=== PATIENT | male | born 1925 | race Caucasian/White ===

== ENCOUNTER → 2016-12-07 | Outpatient (CLI) | payer BC ==
[~2016-12-07] MED LIST: ACET-1138 PO; ALPR0.25 PO; ASPCH81X PO; ATOR-14 PO; CHOLPOW PO; CHOLTAB3 PO; CLB200 PO; FLUCINONIDE TOP; FOLI-29 PO; LISI-729 PO; LOSA1TAB PO; LZL/125 PO; MELA1TAB5 PO; NTRGSL/4 UT; ONDA8TAB6 PO; PSYLPOW38 PO; SNK PO; ULT50X PO
[2016-12-07 10:12] LABS: BASO % 0.7 %; BASO ABS # 0.04 K/uL (0-0.2); COMPLETE YES; EOS % 2.7 %; HEMATOCRIT 39.9 % (42-52); IG% 0.2 %; LYMPH % 25.8 %; LYMPH ABS # 1.52 K/uL (1.2-3.4); MEAN CELL VOLUME 90.7 fL (80-100); MEAN CORPUSCULAR HEMOGLOBIN 31.6 pg (25-34); MEAN CORPUSCULAR HGB CONC 34.8 g/dl (32-36); MEAN PLATELET VOLUME 10.5 fL (7.4-10.4); MONO % 11.5 %; NEUT % 59.1 %; PLATELET COUNT 211 K/uL (130-400); WHITE BLOOD COUNT 5.89 K/uL (4.8-10.8)
[2016-12-07 10:14] LABS: ESTIMATED AVERAGE GLUCOSE 120 mg/dl; HA1C FLAG Normal (Normal)
[2016-12-07 10:34] LABS: ALT/SGPT 21 U/L (12-78); BLOOD UREA NITROGEN 16 mg/dl (7-18); BUN/CREATININE RATIO 18.5 (10-20); CARBON DIOXIDE 29 mmol/L (21-32); CHLORIDE 95 mmol/L (98-107); CHOLESTEROL 154 mg/dl (0-200); CREATININE 0.86 mg/dl (0.60-1.40); GLUCOSE 98 mg/dl (70-99); SODIUM 133 mmol/L (136-145); TRIGLYCERIDES 76 mg/dl (0-150); VERY LOW DENSITY LIPOPROT CALC 15 mg/dl
[2016-12-07 10:47] LABS: AST/SGOT 23 U/L (15-37); CHOLESTEROL/HDL RATIO 2.3; HDL CHOLESTEROL 68 mg/dl; LDL CHOLESTEROL CALCULATED 71 mg/dl
--- NOTE | 2017-01-05 07:09 | CODING QUERY MEDICAL NECESSITY ---
CQSUPPORTING DIAGNOSIS NEEDED A supporting diagnosis is required for the test/procedure performed on this patient in order for us to be reimbursed by the patient's insurance. Please provide a supporting diagnosis for the following test/procedure listed below next to the test name along with your signature. *If there is no additional diagnosis for this patient that would support the following test/procedure please document that below next to the test/procedure. Test(s)/Procedure(s) that require a supporting diagnosis: DOS 12/07/16 GLYCATED HEMOGLOBIN Provider Signature: Date: Thank you Belinda Rios [employer] Once completed, please kindly fax back to [phone] For questions please call [phone]
== END | disposition home or self-care (01) ==
LOC: C.LABVPSUW 09:36
PROVIDERS: ATTEND Internal Medicine
DX: E78.00 Pure hypercholesterolemia, unspecified (principal); R73.9 Hyperglycemia, unspecified

== ENCOUNTER 2017-01-04 06:00 | Inpatient (IN) | payer BC, OTHER ==
[2016-12-10 13:42] VITALS: BMI 22.0
--- NOTE | 2016-12-10 14:31 | PAT Medication Instructions ---
Service Date Dec 10, 2016. Current Home Medication List Alprazolam (Xanax), 0.25 MG PO HS Aspirin (Aspirin Chewable), 81 MG PO QAM Atorvastatin (Lipitor), 10 MG PO QPM Folic Acid-Vit B2-Vit B6-Vit B (Folgard), 800 MG PO QPM Indapamide (Lozol), 1.25 MG PO QAM Lisinopril (Zestril), 2.5 MG PO QPM Melatonin (Kp Melatonin), 0.5 TAB PO HS Nitroglycerin (Nitrostat), 0.4 MG UT PRN Psyllium Husk (Bulk) (Psyllium Husk), 1 DOSE PO QAM [flucinonide], 1 DOSE TOP DAILY PRN for left calf Medication Instructions For Your Scheduled Surgery Nitroglycerin (Nitrostat), 0.4 MG UT PRN (if needed) - Hold the following medications evening prior to surgery: Lisinopril (Zestril), 2.5 MG PO QPM - Hold the following medications 24 hours prior to surgery: Flucinonide 1 DOSE TOP DAILY PRN for left calf - Hold the following medications the morning of surgery: Psyllium Husk (Bulk) (Psyllium Husk), 1 DOSE PO QAM Indapamide (Lozol), 1.25 MG PO QAM - Take the following medications the morning of surgery with a sip of water: Aspirin (Aspirin Chewable), 81 MG PO QAM - Take the following medications as scheduled the night before surgery: Melatonin (Kp Melatonin), 0.5 TAB PO HS Folic Acid-Vit B2-Vit B6-Vit B (Folgard), 800 MG PO QPM Atorvastatin (Lipitor), 10 MG PO QPM Alprazolam (Xanax), 0.25 MG PO HS If you have any questions please call us at [phone] or [phone] ( [place]) or [phone]
--- NOTE | 2016-12-10 15:09 | DIAGNOSTIC IMAGING REPORT ---
CHEST 2 VIEWS ROUTINE CLINICAL HISTORY: Upper chest pain status post trauma COMPARISON STUDY: 12/18/2015 FINDINGS: The cardiac and mediastinal contours are normal. There is no evidence of focal pulmonary consolidation. There is no evidence of failure. No pleural effusions are visualized.[ There is mild basilar interstitial thickening which is felt to be chronic. No pneumothorax is visualized. IMPRESSION: No active disease in the chest. Electronically signed by: Floyd Yanez M.D. 12/10/2016 3:07 PM Dictated Date/Time: 12/10/2016 3:01 PM
[2016-12-10 15:46] LABS: URINE APPEARANCE CLEAR (CLEAR); URINE BILIRUBIN NEG (NEG); URINE COLOR YELLOW; URINE NITRITE NEG (NEG); URINE SPECIFIC GRAVITY 1.018 (1.000-1.030); UROBILINOGEN NEG (NEG); ZZUR CULT IF INDIC CLEAN CATCH NO
[2016-12-10 15:48] LABS: MANUAL MICROSCOPIC REQUIRED? NO; REVIEW REQ? NO
[2016-12-10 15:54] LABS: PARTIAL THROMBOPLASTIN RATIO 1.3; PROTHROMBIN TIME (PATIENT) 10.8 SECONDS (9.0-12.0)
[2016-12-10 16:11] LABS: BUN/CREATININE RATIO 24.2 (10-20); CALCIUM 8.9 mg/dl (8.5-10.1); CREATININE 0.9 mg/dl (0.60-1.40); POTASSIUM 3.5 mmol/L (3.5-5.1)
--- NOTE | 2016-12-25 13:44 | HISTORY & PHYSICAL EXAMINATION ---
DATE OF ADMISSION: 01/04/2017 CHIEF COMPLAINT: Right hip pain. HISTORY OF PRESENT ILLNESS: Kayla is an 89-year-old male with a multiple year history of pain in his right hip. The patient rates his pain a 9/10. He has pain with his daily activities. He has limited standing and walking tolerance. Pain is worse with weightbearing. The patient has failed conservative treatment and is scheduled for right hip replacement. PAST MEDICAL HISTORY: Hypertension, history of heart disease, history of DVT. He denies history of diabetes. PAST SURGICAL HISTORY: Bilateral knee replacement, left hip replacement and poly exchange 2000. SOCIAL HISTORY: The patient drinks 5 drinks per week. He denies tobacco use. He lives in a single story home at the [facility]. He is and retired. FAMILY HISTORY: Negative for DVT. MEDICATIONS: 1.25 mg, statin drug 10 mg, cholestyramine 4 grams in a.m., Folgard 1 tablet daily, aspirin 81 mg daily, alprazolam 0.25 mg, melatonin, [place] 5/325, Nitrostat 0.4 mg, flecainide 0.05%, Lisinopril 2.5 mg daily. ALLERGIES: None. REVIEW OF SYSTEMS: See HPI. Ten other systems reviewed, all negative. PHYSICAL EXAMINATION: VITAL SIGNS: Height 5 foot 9, weight 159 pounds. GENERAL: This is a well-developed, well-nourished male who is alert and oriented x3. Mood and affect are appropriate. HEAD, EYES, EARS, NOSE, AND THROAT: Normocephalic, atraumatic. Mucous membranes are moist and intact. NECK: Supple without lymphadenopathy. HEART: Regular rate and rhythm without murmurs, rubs or gallops. LUNGS: Clear to auscultation without wheezes or rhonchi. ABDOMEN: Soft and nontender. Bowel sounds are equal and active. EXTREMITIES: No ecchymosis, redness or warmth. Thigh and calf are soft and nontender. Log roll of the hip reproduces pain in the groin. He is neurovascularly intact. He walks with an antalgic gait. X-RAY EXAMINATION: AP and lateral views shows severe joint space narrowing and osteophyte formation. IMPRESSION: Degenerative joint disease, right hip. PLAN: The patient will be admitted for a right total hip arthroplasty. We will plan on aspirin for DVT prophylaxis. PCP is Dr. Cohn. [facility] [place] [facility] [place] [facility] [place] [facility]. ADI
[2017-01-04] VITALS (13 sets, daily range): BP systolic 105–176; BP diastolic 55–79; PULSE 65–86; TEMP 36.2–36.8; O2SAT 97–100; Ht 175.3 cm; Wt 71.4 kg
[~2017-01-04] VITALS: Ht 175.3 cm; Wt 71.4 kg
[~2017-01-04 06:00] MED LIST changes: -ACET-1138 PO; +ACETAMINOPHEN 500 MG TAB PO SCH; +CEFAZOLIN 2000 MG/60 ML D5W 60 ML IV SCH; -CHOLPOW PO; -CHOLTAB3 PO; -CLB200 PO; +CeleBREX 200 MG CAP PO SCH; +DEXAMETHASONE 4 MG TAB PO SCH; +FAMOTIDINE 20 MG TAB PO SCH; +GABAPENTIN 300 MG CAP PO SCH; +LACTATED RINGER'S 1000ML 1,000 ML IV SCH; +LACTATED RINGER'S 1000ML IV SCH; -LOSA1TAB PO; +METOCLOPRAMIDE HCL 10 MG TAB PO SCH; -ONDA8TAB6 PO; +POLYMYXIN B SULFATE 100,000 UNITS in NSS 100ML IR SCH; +ROPIVACAINE 5MG/ML 30 ML 150 MG, BUPIVACAINE/EPINEPHR 0.5% MPF 30 ML, KETOROLAC TROMETH... INFIL SCH; -SNK PO; +TRAMADOL HCL 50 MG TAB PO SCH; -ULT50X PO; +VANCOMYCIN INJ 400 MG in NSS 100ML IR SCH
[2017-01-04] MEDS: TRANEXAMIC ACID INJ 1,000 MG in SODIUM CHLORIDE 0.9% 100ML 100 ML IV SCH ×2 (06:30→07:47)
--- NOTE | 2017-01-04 06:38 | History & Physical Bridge Note ---
H&P Re-Evaluation Bridge Note: I have examined the patient, reviewed the History & Physical and in the interval since the performance of the History & Physical I have noted the following changes of clinical significance: No changes noted
[2017-01-04] MEDS ORDERED: MIDAZOLAM HCL 1 MG/ML 2ML VIAL ONE (06:48)
[2017-01-04] MEDS ORDERED: ONDANSETRON INJ 2 MG/ML 2 ML VIAL ONE (06:48)
[2017-01-04] MEDS ORDERED: PROPOFOL IV EMULSION 10 MG/ML 20 ML VIAL IV ONE (06:48)
[2017-01-04] MEDS ORDERED: FENTANYL CITRATE INJ 50 MCG/1 ML 2 ML VIAL ONE (06:49)
[2017-01-04] MEDS ORDERED: BACITRACIN 50000 UNIT VIAL ONE (06:52)
[2017-01-04] MEDS ORDERED: ORTHO JOINT ANESTHETIC ONE (06:52)
[2017-01-04] MEDS ORDERED: POVIDONE-IODINE OP SOLN 30 ML BTL ONE (06:52)
[2017-01-04] MEDS ORDERED: BUPIVACAINE 0.5 % 5 MG/1 ML PF 10ML VIAL ONE (06:56)
[2017-01-04] MEDS ORDERED: INDAPAMIDE 1.25 MG TAB PO SCH (07:00)
[2017-01-04 07:37] LABS: PARTIAL THROMBOPLASTIN RATIO 1.3
[2017-01-04] MEDS ORDERED: ONDANSETRON INJ 2 MG/ML 2 ML VIAL IV PRN ×2 (07:45→09:30)
[2017-01-04] MEDS ORDERED: EpHEDrine SULFATE INJ 50 MG/ML AMP IV PRN (07:45)
[2017-01-04] MEDS ORDERED: FENTANYL CITRATE INJ 50 MCG/1 ML 2 ML VIAL IV PRN (07:45)
[2017-01-04] MEDS ORDERED: ATROPINE SULFATE 0.1 MG/ML 5ML SYR IV PRN (07:45)
[2017-01-04] MEDS ORDERED: HydrALAZINE HCL 20 MG/ML VIAL ONE (08:22)
[2017-01-04] MEDS ORDERED: EpHEDrine SULFATE 50MG/5ML SYR ONE (08:47)
[2017-01-04] MEDS ORDERED: WATER, STERILE FOR INJ 10 ML VIAL ONE (08:47)
[2017-01-04] MEDS ORDERED: PHENYLEPHRINE 100MCG/ML 5ML SYR ONE (09:13)
--- NOTE | 2017-01-04 09:29 | [facility] Post Operative Brief Note ---
Immediate Operative Summary Operative Date Jan 04, 2017. Pre-Operative Diagnosis DEGENERATIVE JOINT DISEASE RIGHT HIP Post-Operative Diagnosis SAME PREOP Procedure(s) Performed TOTAL RIGHT HIP ARTHROPLASTY, ANTERIOR APPROACH Surgeon DR. Christa MESSINA Chinese Herbalist Surgeon(s) Lois FONSECA PAC Estimated Blood Loss 75mL Findings DJD Specimens RIGHT HIP BONE AND TISSUE Complication(s) None Disposition Recovery Room / PACU
[2017-01-04] MEDS ORDERED: METOCLOPRAMIDE HCL INJ 5 MG/ML 2 ML VIAL IV PRN (09:30)
[2017-01-04] MEDS ORDERED: SOD PHOSPHATE/SOD BIPHOSPHATE ENEMA 132 ML BTL PR PRN (09:30)
[2017-01-04] MEDS ORDERED: NITROGLYCERIN 0.4 MG SL PER TAB CHARGE UT SCH (09:30)
[2017-01-04] MEDS ORDERED: MAGNESIUM HYDROXIDE SUSP 30 ML UDC PO PRN (09:30)
[2017-01-04] MEDS ORDERED: ALUMINUM/MAGNESIUM/SIMETH (MAALOX MAX) 30 ML UDC PO PRN (09:30)
[2017-01-04] MEDS ORDERED: DiphenhydrAMINE HCL 50 MG/ML VIAL IV PRN (09:30)
[2017-01-04] MEDS ORDERED: BISACODYL 10 MG SUPP PR PRN (09:30)
[2017-01-04] MEDS ORDERED: ZOLPIDEM TARTRATE 5 MG TAB PO PRN (09:30)
[2017-01-04] MEDS ORDERED: FLUOCINONIDE 0.05% CR 15 GM TUBE EXT PRN (09:30)
[2017-01-04] MEDS ORDERED: TRAMADOL HCL 50 MG TAB PO PRN (09:30)
--- NOTE | 2017-01-04 10:00 | DIAGNOSTIC IMAGING REPORT ---
RIGHT HIP UNILATERAL 1 VIEW CLINICAL HISTORY: RIGHT ANTERIOR HIP Right pain COMPARISON: None. DISCUSSION: Total right hip replacement. Good alignment expected soft tissue change. IMPRESSION: Total right hip replacement Electronically signed by: Warner Viveros M.D. 01/04/2017 9:58 AM Dictated Date/Time: 01/04/2017 9:58 AM
--- NOTE | 2017-01-04 10:18 | Anesthesiology Progress Note ---
Anesthesia Post Op Note Date & Time Jan 04, 2017 at 10:18 Vital Signs Pain Intensity: 0 Vital Signs Past 12 Hours Date Time Temp Pulse Resp B/P Pulse Ox O2 Delivery O2 Flow Rate FiO2 01/04/17 10:10 127/63 01/04/17 10:09 71 19 100 01/04/17 10:09 72 19 01/04/17 10:05 137/64 01/04/17 10:04 70 16 100 01/04/17 10:04 66 16 01/04/17 10:00 137/68 01/04/17 09:59 74 21 100 01/04/17 09:59 74 21 01/04/17 09:55 131/58 01/04/17 09:54 76 20 99 01/04/17 09:54 76 20 01/04/17 09:54 36.0 78 16 133/59 99 Mask 10 01/04/17 06:36 36.5 68 18 176/79 98 Room Air Notes Mental Status: alert / awake / arousable, participated in evaluation Pt Amnestic to Procedure: Yes Nausea / Vomiting: adequately controlled Pain: adequately controlled Airway Patency, RR, SpO2: stable & adequate BP & HR: stable & adequate Hydration State: stable & adequate Neuraxial Anesthesia: was administered, sensory block is resolving Anesthetic Complications: no major complications apparent
--- NOTE | 2017-01-04 10:28 | DIAGNOSTIC IMAGING REPORT ---
AP PELVIS, CROSSTABLE LATERAL RIGHT HIP History: Right total hip arthroplasty. Degenerative arthritis. Postop. FINDINGS: The patient is status post a right total hip arthroplasty. The hardware is intact. No fracture or dislocation. Skin herman and surgical drains are in place. There is also an old left total hip arthroplasty. IMPRESSION: Right total hip arthroplasty. No evidence for hardware complication Electronically signed by: Neal Saravia M.D. 01/04/2017 10:27 AM Dictated Date/Time: 01/04/2017 10:26 AM
[2017-01-04] MEDS: KETOROLAC TROMETHAMINE 15 MG/ML VIAL IV. SCH ×3 (11:54→23:24)
[2017-01-04] MEDS: D5W AND 1/2NSS + 20MEQ KCL 1,000 ML IV SCH ×2 (11:55→20:46)
[2017-01-04] MEDS: CEFAZOLIN IV 1,000 MG in DEXTROSE 5% 50ML 50 ML IV SCH ×2 (13:23→21:49)
[2017-01-04] MEDS: ACETAMINOPHEN 500 MG TAB PO SCH ×2 (13:24→21:50)
[2017-01-04] MEDS: [UNRECOGNIZED DRUG - OTHER] PO SCH (15:39)
[2017-01-04] MEDS: ASPIRIN 81 MG ECTAB PO SCH (20:45)
[2017-01-04] MEDS ORDERED: LISINOPRIL 2.5 MG TAB PO SCH (21:00)
[2017-01-04] MEDS ORDERED: SENNA 8.6 MG TAB PO SCH (21:00)
[2017-01-04] MEDS ORDERED: ATORVASTATIN 10 MG TAB PO SCH (21:00)
[2017-01-04] MEDS ORDERED: ALPRAZOLAM 0.25 MG TAB PO SCH (22:00)
--- NOTE | 2017-01-05 00:14 | OPERATIVE REPORT ---
DATE OF OPERATION: 01/04/2017 PREOPERATIVE DIAGNOSIS: Degenerative arthritis, right hip. POSTOPERATIVE DIAGNOSIS: Same. PROCEDURE: Right total hip replacement. SURGEON: Dr. Pacheco. COMMERCIAL SINGER: NANDO Aggarwal ANESTHESIA: Spinal. BLOOD LOSS: 75 mL REPLACEMENT FLUIDS: 1500 mL crystalloid. DRAINS: Hemovac x1. CULTURES: None. COMPLICATIONS: None. COMPONENTS USED: [employer] hip system: Acetabulum size 52, femur size 7 high offset, femoral head +4, 36 mm Oxinium. NOTE: NANDO Aggarwal, was present and assisted throughout due to the complicated nature of this case. She helped with preparation and set up. She first assisted throughout and personally closed the capsule, subcutaneous and skin layers, and applied the postop dressing. DESCRIPTION: Following satisfactory spinal, the patient was supine. The right leg was placed in the traction device and the left leg in the well-leg seth. The right leg was prepared with ChloraPrep and draped sterilely. Following a surgical timeout, an anterior approach in the interval between the sartorius and tensor muscles was completed. Circumflex femoral vessels were identified and ligated. An anterior capsulotomy was performed exposing the arthritic femoral neck and head. Femoral neck and head were trimmed and removed. The acetabular self-retraining retractor was placed. Acetabular preparation and reaming was completed, and under fluoroscopic guidance, a 52 shell was impacted into an anatomic position and secured with a dome screw. Local anesthetic was placed, and after irrigation, the polyethylene liner was placed. The femur was placed into position of external rotation, extension and adduction. Femoral canal was prepared up to the size 7. The trial reduction with the above-mentioned components showed good fit and fill of the proximal canal and roman catholic of leg lengths using anatomic landmarks on fluoroscopy. The hip was dislocated. The trial component was removed. The final implant was placed, and after irrigation, the Betadine soak was performed and then irrigated. The capsule was then closed with 1 Vicryl interrupted. A drain was placed. The fascia was closed with a running suture of 1 Vicryl, subcutaneous tissues with 2-0 Vicryl, and the skin with a running subcuticular stitch of 3-0 V-Loc. Dermabond and a dry dressing were applied. The patient was returned to his bed in stable condition. I attest to the content of the Intraoperative Record and any orders documented therein. Any exceptio ns are noted below.
[2017-01-05 04:10] VITALS: BP 109/50; PULSE 62; TEMP 36.6; O2SAT 96
[2017-01-05] MEDS: [UNRECOGNIZED DRUG - OTHER] PO SCH (05:34)
[2017-01-05] MEDS: KETOROLAC TROMETHAMINE 15 MG/ML VIAL IV. SCH (05:35)
[2017-01-05] MEDS: ACETAMINOPHEN 500 MG TAB PO SCH ×2 (05:36→14:08)
[2017-01-05 06:19] LABS: COMPLETE YES; HEMATOCRIT 29.7 % (42-52); IG% 0.4 %; LYMPH % 4.8 %; LYMPH ABS # 0.65 K/uL (1.2-3.4); MEAN CELL VOLUME 90.3 fL (80-100); MEAN CORPUSCULAR HEMOGLOBIN 32.2 pg (25-34); MEAN CORPUSCULAR HGB CONC 35.7 g/dl (32-36); MEAN PLATELET VOLUME 10.1 fL (7.4-10.4); MONO % 6.5 %; NEUT % 88.3 %; PLATELET COUNT 159 K/uL (130-400); RED BLOOD COUNT 3.29 M/uL (4.7-6.1); WHITE BLOOD COUNT 13.59 K/uL (4.8-10.8)
[2017-01-05 06:46] LABS: BUN/CREATININE RATIO 24.4 (10-20); CALCIUM 7.6 mg/dl (8.5-10.1); POTASSIUM 4.2 mmol/L (3.5-5.1)
[2017-01-05 07:35] VITALS: BP 128/61; PULSE 70; TEMP 36.8; O2SAT 97
[2017-01-05] MEDS: D5W AND 1/2NSS + 20MEQ KCL 1,000 ML IV SCH (07:38)
[2017-01-05] MEDS: ASPIRIN 81 MG ECTAB PO SCH (08:42)
[2017-01-05] MEDS ORDERED: PSYLLIUM 58.6% PWD PACK S\\F PO SCH (09:00)
[2017-01-05] MEDS ORDERED: INDAPAMIDE 1.25 MG TAB PO SCH (09:00)
[2017-01-05] MEDS ORDERED: MULTIVITAMIN TAB PO SCH (09:00)
[2017-01-05] MEDS ORDERED: PANTOprazole SOD 40 MG TAB PO SCH (09:00)
[2017-01-05 09:40] VITALS: BP 163/70; PULSE 77; O2SAT 99
[2017-01-05] MEDS: CHLORPROMAZINE HCL 10 MG TAB PO PRN ×2 (10:45→11:52)
[2017-01-05] MEDS ORDERED: CeleBREX 200 MG CAP PO SCH (12:00)
--- NOTE | 2017-01-05 12:09 | INTERNAL MEDICINE CONSULTATION ---
DATE OF CONSULTATION: 01/05/2017 SUBJECTIVE: Mr. Méndez is an 89-year-old gentleman who has been a patient of mine for many years. He was admitted to the hospital yesterday to undergo a right total hip replacement. His surgery was apparently uncomplicated. He is now doing well. He has been ambulating with a walker and getting physical and occupational therapy during the first 24 hours of his postoperative course. Currently, he feels well with his only complaint being some hiccups that he has had for the past 3 hours. He has had this in the past and they have been successfully treated with low dose Thorazine. Postoperatively, he has had no difficulty with his bowels. He had a normal bowel movement this morning. He is having no difficulty urinating despite a history of BPH. He generally feels well and is anticipating discharge later today. His significant medical history is one of longstanding hypertension that has been very well controlled. His current antihypertensive medications include indapamide 1.25 mg daily and lisinopril 2.5 mg daily. He takes those medications without side effect. He does try to follow restricted sodium diet. Additionally, he has a history of hypercholesterolemia, for which he takes atorvastatin 10 mg daily and Folgard. He also has a history of mild hyperglycemia, but has not required any oral hypoglycemics or injectable diabetic medications. Complicating his hypertension and hypercholesterolemia is a history of coronary artery disease dating back to 1999. At that time, he presented with significant chest pain. He was found to have significant coronary artery disease at that time. He had a revascularization procedure of the obtuse marginal done at that time. He did have evidence of borderline occlusive disease involving the RCA at that time. However, since that intervention, he has had no recurrent problems with angina. He does have nitroglycerin, but he has not even carrying it on a regular basis because he has had no chest pain. He has had no indication of congestive heart failure. He has had no issues in his postoperative course. His other chronic medical issues include a history of nephrolithiasis, for which he is receiving no current medications and from which, he is currently asymptomatic. He also has a history of benign prostatic hypertrophy as noted above. He has a history of chronic venous insufficiency, but is not currently anticoagulated. He also has a significant history of degenerative arthritis. He has had both knees replaced. He had a right total hip replacement earlier. He also has major problems with spinal stenosis. Currently, it is not recommended that he have surgery done. His chronic regular medications include alprazolam 0.25 mg to take at bedtime as needed. He takes an 81 mg aspirin a day. He takes atorvastatin 10 mg at bedtime as well as finasteride 5 mg daily and fluocinonide cream applied locally 2-3 times a day as necessary. He also has Folgard, which he takes 1 tablet daily (1 mg), indapamide 1.25 mg daily, lisinopril 2.5 mg daily, melatonin 0.5 mg at bedtime and nitroglycerin on a p.r.n. basis. ALLERGIES: HE HAS HAD PROBLEMS WITH MYALGIAS ASSOCIATED WITH CERTAIN STATINS, BUT IS ABLE TO GET BY WITH HIS CURRENT ATORVASTATIN. The remainder of his past medical history, family history, social history and review of systems is outlined on his admission note and will not be repeated. There are no significant additions. OBJECTIVE: GENERAL: On physical exam at the current time, Mr. Méndez appears quite comfortable and well. VITAL SIGNS: He is afebrile (36.8), his blood pressure 128/61 with a pulse of 70 and regular, respiratory rate is 18, and his pulse ox 97% on room air. SKIN: Shows normal skin turgor. He has no rash or infiltrative skin disease other than mild changes of venous stasis dermatitis on his lower extremities, left worse than right. He has scars over both knees from knee replacements and a scar on his right arm from surgery done many years ago for unclear reasons. He has a scar over his left hip from his left total hip replacement. There is no palpable lymphadenopathy. HEAD: Normal. EYES: Grossly normal. The ocular fundi were not examined. EARS, NOSE, MOUTH AND THROAT: All unremarkable. He is wearing hearing aids bilaterally. Oral mucous membranes are moist. NECK: Supple. There is no jugular venous distention, carotid bruit or thyromegaly. CHEST: Clear to auscultation. CARDIAC: Shows a regular rhythm. S1 and S2 are normal. He has no extrasystoles. He has a grade 2/6 systolic murmur heard loudest at the base and radiating toward the neck. I hear no diastolic murmurs. He has no gallops. ABDOMEN: Nontender. There is no organomegaly or mass. EXTREMITIES: Show no cyanosis, clubbing or peripheral edema. The distal fourth finger on his right hand is absent from previous trauma. His left calf is a bit larger than the right. However, he has no calf tenderness or cord. NEUROLOGIC: Shows no lateralizing changes. He does, however, have a decrease in vibratory and light touch sensation in his right foot compared to the left. Deep tendon reflexes are normal and symmetrical. PERTINENT LABORATORY WORK: From today shows a white count of 13,590 with 88.3% neutrophils, 4.8% lymphocytes, and 6.5% monocytes. His hemoglobin is 10.6, his hematocrit 29.7, and his platelet count 159,000. His clinical chemistries show a sodium of 130 mmol/L, potassium 4.2 mmol/L, chlorides of 96 mmol/L, and CO2 content of 25 mmol/L. His BUN is 24 and his creatinine 1.00. His serum calcium is 7.6 on admission. On laboratory testing, his calcium was 8.9 with an albumin of 4.0. ASSESSMENT: Mr. Méndez and seems to have come through his surgery quite well. His only current issue is ____. He has responded in the past to Thorazine and I have taken the liberty of prescribing a low dose of Thorazine to be given now to see if that will resolve his issue. No other immediate change in recommended therapy. As long as he is ambulatory, systemic anticoagulation might not be necessary. I would leave that to the discretion of orthopedics. However, keeping in mind that he has had a DVT involving the left leg in the past. I told Mr. Méndez that I would see him as an outpatient sooner than his next regularly scheduled appointment if he has any difficulties at the time of discharge. He may be discharged today. If not, I will continue to follow him during his inpatient stay.
--- NOTE | 2017-01-05 12:27 | Orthopedic Progress Note ---
Orthopedic Progress Note Date of Service Jan 05, 2017. Subjective Post OP Day: 1 Reports: feeling well, Denies: SOB, calf pain, chest pain, light headedness, nausea / vomiting Additional Notes: HAS HAD THE HICCUPS SINCE EARLY THIS MORNING Objective calves soft nontender, N/V intact, hip located, dressing C/D/I, A&O x3, toes mobile, hemovac drainage (340/75CC PER SHIFT) Date Time Temp Pulse Resp B/P Pulse Ox O2 Delivery O2 Flow Rate FiO2 01/05/17 09:40 77 99 01/05/17 07:54 Room Air 01/05/17 07:35 36.8 70 18 128/61 97 Room Air 01/05/17 04:10 36.6 62 16 109/50 96 Room Air 01/04/17 23:30 Room Air 01/04/17 23:00 36.8 69 16 105/55 98 Room Air 01/04/17 20:00 36.5 65 17 107/57 97 Room Air 01/04/17 15:48 99 Room Air 01/04/17 15:12 36.5 74 17 120/67 99 Nasal Cannula 2.0 01/04/17 13:51 36.5 67 14 131/62 100 Nasal Cannula 2.0 01/04/17 12:52 36.5 86 20 125/58 100 Nasal Cannula 2.0 01/04/17 12:39 100 Nasal Cannula 2.0 Laboratory Results 24 Hours: Test 01/05/17 05:48 White Blood Count 13.59 K/uL Red Blood Count 3.29 M/uL Hemoglobin 10.6 g/dL Hematocrit 29.7 % Mean Corpuscular Volume 90.3 fL Mean Corpuscular Hemoglobin 32.2 pg Mean Corpuscular Hemoglobin Concent 35.7 g/dl Platelet Count 159 K/uL Mean Platelet Volume 10.1 fL Neutrophils (%) (Auto) 88.3 % Lymphocytes (%) (Auto) 4.8 % Monocytes (%) (Auto) 6.5 % Eosinophils (%) (Auto) 0.0 % Basophils (%) (Auto) 0.0 % Neutrophils # (Auto) 12.00 K/uL Lymphocytes # (Auto) 0.65 K/uL Monocytes # (Auto) 0.89 K/uL Eosinophils # (Auto) 0.00 K/uL Basophils # (Auto) 0.00 K/uL Assessment & Plan Assessment: POD#1 SP RIGHT RAGHAV, DIRECT ANTERIOR Inhouse Planning Pain Management: Celebrex, Ultram, PO Tylenol DVT Prophylaxis: TEDs, SCDs, ASA Discharge Planning Discharge Planning: home with oppt ([facility] WILL RETURN THERE. LIKELY DC HOME TODAY.)
--- NOTE | 2017-01-05 12:32 | Discharge Instructions ---
Discharge Instructions Date of Service Jan 05, 2017. Admission Reason for Admission: Right Hip Degenerative Arthritis Discharge Discharge Diagnosis / Problem: SP RIGHT RAGHAV, DIRECT ANTERIOR Discharge Goals Goal(s): Decrease discomfort, Improve function, Increase independence Activity Recommendations Activity Limitations: per Instructions/Follow-up section . Instructions / Follow-Up Instructions / Follow-Up ACTIVITY RECOMMENDATIONS: SELF CARE INSTRUCTIONS AFTER TOTAL HIP REPLACEMENT : Direct Anterior Approach Until the incision and soft tissues around your hip have healed, there is a possibility that the hip prosthesis could dislocate. A. Hip flexion ( Up & Down out of chair or steps ) may be difficult. This is normal. B. Numbness in front of the thigh is also normal for a few weeks. C. Use hand rails when walking on stairs. D. Wear low heeled shoes with non-slip soles. E. Be sure that your floors are free of things that could trip you - throw rugs , electrical cords, small objects. Avoid wet and waxed floors, especially with crutches and canes. F. Try to walk several times a day with rest periods between. G. Continue with all the exercises taught to you in the hospital. Again, make walking a part of your daily routine. SPECIAL CARE INSTRUCTIONS: VERY IMPORTANT TO READ AND REVIEW A. You may still be at risk for phlebitis and blood clots. 1. Wear surgical stockings (LEO hose) for 2 weeks after surgery to improve circulation and reduce swelling. 2. Take Aspirin 81mg twice daily for 4 weeks or as directed by your doctor. This is your blood thinner. 3. High risk patients may be prescribed a stronger blood thinner if necessary. 4. If you are on Coumadin normally, your family doctor/front services agent should monitor your blood work. Expect a phone call the day of or the day after bloodwork is drawn to adjust your dosage. B. You must take antibiotics before having dental work, bladder, bowel and other surgery. Your doctor will provide you with a permanent card to carry describing precautions. C. Call [facility] if you have a fever, redness or swelling around the incision, cloudy drainage from incision, or sudden increase in pain in your hip, not relieved by your regular pain medication. D. Please call the office at if you have any concerns or questions about your operation or recovery. * YOU MAY SHOWER, NO TUB BATHS UNTIL CLEARED BY YOUR DOCTOR. - Keep an extra close eye on the top portion of your incision. Be sure to keep clean & dry. * WEAR LEO HOSE 20 HOURS PER DAY FOR 2 WEEKS. * YOU MAY PROGRESS FROM A WALKER, TO A CANE, TO INDEPENDENT AT YOUR OWN PACE. * MOST PATIENTS WILL HAVE HOME NURSING FOR THERAPY. IF YOU DECIDE TO DO OUTPATIENT PHYSICAL THERAPY, PLEASE SCHEDULE THIS 3 TIMES PER WEEK. LEAVE SURGICAL DRESSING ON X 7 DAYS THEN YOU MAY REMOVE. PLEASE FOLLOW THE INSTRUCTIONS BELOW AFTERWARDS. * DERMABOND Prineo- This is a mesh tape dressing that is covered with glue. It should remain in place until the incision is properly healed, usually 10-14 days. This dressing is designed to naturally slough off. You may trim the excess mesh tape as it peels off. Incision may be briefly wet in a shower. Dry immediately by blotting with a clean, dry towel. Do not bath or swim until instructed by your doctor. Do not scratch, rub, or pick at the dressing. Do not apply any topical ointments or lotions until dressing is completely removed and/or instructed by your doctor. There may be a small piece of suture material at one end of your incision. Do not pull or trim this. If it is bothersome or catching on clothing, you may cover it with a band-aid. FOLLOW UP VISIT: If appointment is not already scheduled: Please call [facility] to make a follow-up appointment for 2 weeks after your surgery at . Current Hospital Diet Patient's current hospital diet: Regular Diet Discharge Diet Recommended Diet: Regular Diet Procedures Procedures Performed: TOTAL RIGHT HIP ARTHROPLASTY, ANTERIOR APPROACH Pending Studies Studies pending at discharge: no Laboratory Results Hemoglobin A1c Test 12/07/16 08:04 Range/Units Estimated Average Glucose 120 mg/dl Hemoglobin A1c 5.8 H 4.5-5.6 % Lipid Panel Test 12/07/16 08:04 Range/Units Triglycerides Level 76 0-150 mg/dl Cholesterol Level 154 0-200 mg/dl HDL Cholesterol 68 mg/dl Cholesterol/HDL Ratio 2.3 LDL Cholesterol, Calculated 71 mg/dl Medical Emergencies . Who to Call and When: Medical Emergencies: If at any time you feel your situation is an emergency, please call 911 immediately. . Non-Emergent Contact Non-Emergency issues call your: Primary Care Provider . "Provider Documentation" section prepared by Estela Dowling. VTE Core Measure Inpt VTE Proph given/why not?: Other Anticoagulation, T.E.D. Stockings, SCD's [place] Drug Monitoring Program Search Results: patient reviewed within database, no issues identified
[2017-01-05] MEDS ORDERED: ULT50X PO (12:34)
[2017-01-05] MEDS ORDERED: ACET-1138 PO (12:34)
[2017-01-05] MEDS ORDERED: CLB200 PO (12:34)
[2017-01-05] MEDS ORDERED: ONDA8TAB6 PO (12:34)
[2017-01-05] MEDS ORDERED: SNK PO (12:34)
[2017-01-05] MEDS ORDERED: ASPCH81X PO (12:34)
[2017-01-05 13:49] VITALS: BP 163/70; PULSE 77; TEMP 36.8; O2SAT 99
--- NOTE | 2017-01-11 15:18 | DISCHARGE SUMMARY ---
DISCHARGE DIAGNOSIS: Degenerative joint disease, right hip. SECONDARY DIAGNOSIS: None. CONSULTATIONS: Herbert Cohn MD PROCEDURE: The patient underwent a direct anterior right total hip arthroplasty with Dr. Pacheco on 01/04/2017. BRIEF HISTORY OF PRESENT ILLNESS: Please see previously dictated history and physical. HOSPITAL SUMMARY: The patient was admitted on the above day for the above procedure. Procedure went without complication. Postop day 1, the patient was feeling well without complaints. He denied chest pain or shortness of breath. Vital signs were stable. He was afebrile. Dressing was clean, dry and intact. He was neurovascularly intact. Calves were soft and nontender. Hemovac drained 340 and 75 mL per shift. The patient had hiccups. Hemoglobin was 12.6. Dr. Cohn ordered him Thorazine for his hiccups. He was discharged home later that day in stable condition. For further review, please see the chart. Lab, x-ray data and discharge instructions as per chart.
== END 2017-01-05 14:47 | disposition home or self-care (01) | DRG 470 ==
LOC: ENRESERVTM → ENRESERVDT → C.ACU 06:00 → C.3E 06:30
PROVIDERS: ADMIT Orthopaedic Surgery; ATTEND Orthopaedic Surgery
PROC: 0SR904Z Replacement of Right Hip Joint with Ceramic on Polyethylene Synthetic Substitute, Open Approach (ICD-10-PCS; principal; 2017-01-04 08:00)
DX: M16.11 Unilateral primary osteoarthritis, right hip (principal); I10 Essential (primary) hypertension; I25.10 Atherosclerotic heart disease of native coronary artery without angina pectoris; I25.2 Old myocardial infarction; E78.5 Hyperlipidemia, unspecified; M54.9 Dorsalgia, unspecified; R06.6 Hiccough; R01.1 Cardiac murmur, unspecified; F41.9 Anxiety disorder, unspecified; Z95.5 Presence of coronary angioplasty implant and graft; Z96.653 Presence of artificial knee joint, bilateral; Z96.642 Presence of left artificial hip joint; Z79.899 Other long term (current) drug therapy; Z86.718 Personal history of other venous thrombosis and embolism; Z79.82 Long term (current) use of aspirin; Z79.891 Long term (current) use of opiate analgesic

== ENCOUNTER → 2017-06-11 | Outpatient (CLI) | payer BC ==
[~2017-06-11] MED LIST changes: +ACET-1138 PO; -ACETAMINOPHEN 500 MG TAB PO SCH; -CEFAZOLIN 2000 MG/60 ML D5W 60 ML IV SCH; +CLB200 PO; -CeleBREX 200 MG CAP PO SCH; -DEXAMETHASONE 4 MG TAB PO SCH; -FAMOTIDINE 20 MG TAB PO SCH; -GABAPENTIN 300 MG CAP PO SCH; -LACTATED RINGER'S 1000ML 1,000 ML IV SCH; -LACTATED RINGER'S 1000ML IV SCH; -METOCLOPRAMIDE HCL 10 MG TAB PO SCH; +ONDA8TAB6 PO; -POLYMYXIN B SULFATE 100,000 UNITS in NSS 100ML IR SCH; -ROPIVACAINE 5MG/ML 30 ML 150 MG, BUPIVACAINE/EPINEPHR 0.5% MPF 30 ML, KETOROLAC TROMETH... INFIL SCH; +SNK PO; -TRAMADOL HCL 50 MG TAB PO SCH; +ULT50X PO; -VANCOMYCIN INJ 400 MG in NSS 100ML IR SCH
[2017-06-11 10:35] LABS: BASO % 0.2 %; BASO ABS # 0.01 K/uL (0-0.2); COMPLETE YES; EOS % 1.4 %; HEMATOCRIT 38.9 % (42-52); LYMPH % 26.1 %; LYMPH ABS # 1.32 K/uL (1.2-3.4); MEAN CELL VOLUME 87.6 fL (80-100); MEAN CORPUSCULAR HEMOGLOBIN 31.1 pg (25-34); MEAN CORPUSCULAR HGB CONC 35.5 g/dl (32-36); MEAN PLATELET VOLUME 10.5 fL (7.4-10.4); MONO % 13.1 %; NEUT % 59.2 %; PLATELET COUNT 206 K/uL (130-400); RED BLOOD COUNT 4.44 M/uL (4.7-6.1); WHITE BLOOD COUNT 5.05 K/uL (4.8-10.8)
[2017-06-11 10:45] LABS: ALT/SGPT 23 U/L (12-78); AST/SGOT 18 U/L (15-37); BLOOD UREA NITROGEN 17 mg/dl (7-18); BUN/CREATININE RATIO 19.6 (10-20); CALCIUM 8.6 mg/dl (8.5-10.1); CARBON DIOXIDE 31 mmol/L (21-32); CHLORIDE 91 mmol/L (98-107); CREATININE 0.89 mg/dl (0.60-1.40); GLUCOSE 96 mg/dl (70-99); MAGNESIUM 1.9 mg/dl (1.8-2.4); POTASSIUM 3.8 mmol/L (3.5-5.1); SODIUM 127 mmol/L (136-145)
[2017-06-11 10:48] LABS: CHOLESTEROL 132 mg/dl (0-200); CHOLESTEROL/HDL RATIO 2.2; HDL CHOLESTEROL 59 mg/dl; LDL CHOLESTEROL CALCULATED 56 mg/dl; TRIGLYCERIDES 87 mg/dl (0-150); VERY LOW DENSITY LIPOPROT CALC 17 mg/dl
[2017-06-11 12:32] LABS: ESTIMATED AVERAGE GLUCOSE 126 mg/dl; HA1C FLAG Normal (Normal)
--- NOTE | 2017-06-17 06:42 | CODING QUERY MEDICAL NECESSITY ---
CQSUPPORTING DIAGNOSIS NEEDED A supporting diagnosis is required for the test/procedure performed on this patient in order for us to be reimbursed by the patient's insurance. Please provide a supporting diagnosis for the following test/procedure listed below next to the test name along with your signature. *If there is no additional diagnosis for this patient that would support the following test/procedure please document that below next to the test/procedure. Test(s)/Procedure(s) that require a supporting diagnosis: DOS 06/11/17 GLYCATED HEMOGLOBIN TEST COMPLETE BLOOD COUNT TEST Provider Signature: Date: Thank you Belinda Rios [facility] Information Management Once completed, please kindly fax back to [phone] For questions please call [phone]
== END | disposition home or self-care (01) ==
LOC: C.LABVPSUW 09:34
PROVIDERS: ATTEND Internal Medicine
DX: N40.1 Benign prostatic hyperplasia with lower urinary tract symptoms (principal); R73.9 Hyperglycemia, unspecified; I87.2 Venous insufficiency (chronic) (peripheral)

== ENCOUNTER → 2017-06-14 | Outpatient (CLI) | payer BC ==
[2017-06-14 13:11] LABS: URINE APPEARANCE CLEAR (CLEAR); URINE BILIRUBIN NEG (NEG); URINE COLOR YELLOW; URINE EPITHELIAL CELL AUTO 0-5 /lpf (0-5); URINE NITRITE NEG (NEG); URINE PH 7.5 (4.5-7.5); URINE SPECIFIC GRAVITY 1.018 (1.000-1.030); UROBILINOGEN NEG (NEG)
[2017-06-14 13:34] LABS: MANUAL MICROSCOPIC REQUIRED? NO; REVIEW REQ? NO
== END | disposition home or self-care (01) ==
LOC: C.LABVPSUW 11:52
PROVIDERS: ATTEND Internal Medicine
DX: N40.1 Benign prostatic hyperplasia with lower urinary tract symptoms (principal)